=== PATIENT | male | born 1985 | race African-American/Black ===

== ENCOUNTER → 2022-01-15 | Outpatient (CLI) | payer OTHER | LOC: MHCPAIN 10:03 | DX: M25.562 Pain in left knee (principal); G83.12 Monoplegia of lower limb affecting left dominant side | CPT/HCPCS: G0463 ==

== ENCOUNTER → 2022-04-10 | Outpatient (CLI) | payer OTHER | LOC: COL.RAD 12:20 | DX: M79.605 Pain in left leg (principal); R53.1 Weakness ==